=== PATIENT | male | born 1945 ===

== ENCOUNTER 2019-07-13 11:25 | Inpatient (IN) | payer OTHER ==
[2019-07-13 13:02] LABS: Basophils % (A) 0 %; Eosinophils # (A) 0.2 k/uL (0-0.7); Eosinophils % (A) 4 %; HCT 44.8 % (39.0-53.0); HGB 15.3 gm/dL (13.0-17.5); Lymphocytes # (A) 1.3 k/uL (1.0-4.8); Lymphocytes % (A) 23 %; MCH 34.4 pg (25.0-35.0); MCHC 34.1 g/dL (31.0-37.0); Mean Platelet Volume 6.7; Monocytes # (A) 0.4 k/uL (0-1.0); Monocytes % (A) 6 %; Neutrophils # (A) 3.7 k/uL (1.3-7.7); Neutrophils % (A) 64 %; Platelet Count 206 k/uL (150-450); RBC 4.43 m/uL (4.30-5.90); RDW 12.5 % (11.5-15.5); WBC 5.8 k/uL (3.8-10.6)
[2019-07-13 13:21] LABS: Albumin 3.9 g/dL (3.5-5.0); Calcium 9.1 mg/dL (8.4-10.2); Total Bilirubin 1.4 mg/dL (0.2-1.3); Total Protein 6.9 g/dL (6.3-8.2)
[2019-07-13 13:27] LABS: Potassium 4.4 mmol/L (3.5-5.1)
--- NOTE | 2019-07-13 13:45 | ED ---
Skin/Abscess/FB HPI - General Chief complaint: Skin/Abscess/Foreign Body Stated complaint: Infection Time Seen by Provider: 07/13/19 12:09 Source: patient Mode of arrival: ambulatory - History of Present Illness Initial comments: 73-year-old male who denies past medical history presenting today for chief complaint of diagnosis, cell carcinoma and evaluation in the emergency depa rtment. Patient states he had a biopsy of a mass on the right side of his neck just been developing over the past few months. Patient was told it was, cell carcinoma. Patient was told he needed to go to [facility] emergency department for further evaluation. Patient feels like the masses pushing internally. He states his pain in his ear and his throat. Patient denies any difficulty breathing swallowing. Patient denies any fever or chills. Symptoms patient denies any other complaints denies any headache dizziness chest pain shortness of breath and leg swelling. Upon arrival patient appears well signs of acute distress she is very pleasant - Related Data Home Medications Medication Instructions Recorded Confirmed Lisinopril [Zestril] 10 mg PO DAILY 07/13/19 07/13/19 Metoprolol Succinate [Toprol XL] 25 mg PO HS 07/13/19 07/13/19 Allergies Allergy/AdvReac Type Severity Reaction Status Date / Time No Known Allergies Allergy Verified 07/13/19 16:01 Review of Systems ROS Statement: Those systems with pertinent positive or pertinent negative responses have been documented in the HPI. ROS Other: All systems not noted in ROS Statement are negative. Past Medical History Past Medical History: No Reported History History of Any Multi-Drug Resistant Organisms: None Reported Past Surgical History: Cholecystectomy Smoking Status: Never smoker Past Alcohol Use History: None Reported, Occasional Past Drug Use History: None Reported General Exam - General Exam Comments Initial Comments: General: The patient is awake and alert, in no distress, and does not appear acutely ill. Eye: +3 mm pupils are equal, round and reactive to light, extra-ocular movements are intact. No nystagmus. There is normal conjunctiva bilaterally. No signs of icterus. Ears, nose, mouth and throat: There are moist mucous membranes and no oral lesions. Neck: There is large right sided fungating mass roughly 5x4 cm, soft tissue swelling with tenderness to palptionn surround center of mass. Cardiovascular: There is a regular rate and rhythm. No murmur, rub or gallop is appreciated. Respiratory: Lungs are clear to auscultation, respirations are non-labored, breath sounds are equal. No wheezes, stridor, rales, or rhonchi. Gastrointestinal: Soft, non-distended, non-tender abdomen without masses or organomegaly noted. There is no rebound or guarding present. Musculoskeletal: Normal ROM, no tenderness. Strength 5/5. Sensation intact. Radial pulses equal bilaterally 2+. Neurological: A&O x 3. CN II-XII intact grossly, There are no obvious motor or sensory deficits. Coordination appears grossly intact. Speech is normal. Skin: Skin is warm and dry and no rashes or lesions are noted. No LE edema. Psychiatric: Cooperative, appropriate mood & affect, normal judgment. Course Vital Signs 07/13/19 07/13/19 07/13/19 11:49 13:28 15:03 Temperature 97.9 F 98.2 F Pulse Rate 61 58 L Respiratory 18 16 16 Rate Blood Pressure 137/59 134/70 O2 Sat by Pulse 94 L 97 Oximetry 07/13/19 16:10 Temperature 98.1 F Pulse Rate 67 Respiratory 16 Rate Blood Pressure 137/89 O2 Sat by Pulse 98 Oximetry Medical Decision Making - Medical Decision Making 73-year-old male presenting today for chief complaint of newly diagnosed cancer. Patient is fungating mass diagnosis squamous cell carcinoma after biopsy. Patient otherwise appears well no other complaints CT obtained to ensure no airway compression. There is evidence of invasion into the parotid gland as well as local metastasis and metastasis to adjacent lymph nodes. Patient will be admitted for oncology consultation. Dr Lutz accepted admission. Case discussed wtih Dr Marion. - Lab Data Result diagrams: 07/13/19 12:35 07/13/19 12:35 Lab Results 07/13/19 07/13/19 Range/Units 12:35 12:35 WBC 5.8 (3.8-10.6) k/uL RBC 4.43 (4.30-5.90) m/uL Hgb 15.3 (13.0-17.5) gm/dL Hct 44.8 (39.0-53.0) % MCV 101.0 H (80.0-100.0) fL MCH 34.4 (25.0-35.0) pg MCHC 34.1 (31.0-37.0) g/dL RDW 12.5 (11.5-15.5) % Plt Count 206 (150-450) k/uL Neutrophils % 64 % Lymphocytes % 23 % Monocytes % 6 % Eosinophils % 4 % Basophils % 0 % Neutrophils # 3.7 (1.3-7.7) k/uL Lymphocytes # 1.3 (1.0-4.8) k/uL Monocytes # 0.4 (0-1.0) k/uL Eosinophils # 0.2 (0-0.7) k/uL Basophils # 0.0 (0-0.2) k/uL Sodium 140 (137-145) mmol/L Potassium 4.4 (3.5-5.1) mmol/L Chloride 107 (98-107) mmol/L Carbon Dioxide 24 (22-30) mmol/L Anion Gap 9 mmol/L BUN 20 (9-20) mg/dL Creatinine 0.96 (0.66-1.25) mg/dL Est GFR (CKD-EPI)AfAm 90 (>60 ml/min/1.73 sqM) Est GFR (CKD-EPI)NonAf 78 (>60 ml/min/1.73 sqM) Glucose 100 H (74-99) mg/dL Calcium 9.1 (8.4-10.2) mg/dL Total Bilirubin 1.4 H (0.2-1.3) mg/dL AST 26 (17-59) U/L ALT 17 (4-49) U/L Alkaline Phosphatase 46 (38-126) U/L Total Protein 6.9 (6.3-8.2) g/dL Albumin 3.9 (3.5-5.0) g/dL Disposition Clinical Impression: Squamous cell carcinoma, Squamous cell carcinoma, metastatic Disposition: ADMITTED IP TO THIS [facility] Condition: Stable Is patient prescribed a controlled substance at d/c from ED?: No Time of Disposition: 15:44 Decision to Admit Reason: Admit from EC Decision Date: 07/13/19 Decision Time: 15:44
--- NOTE | 2019-07-13 14:15 | CT ---
EXAMINATION TYPE: CT soft tissue neck w con DATE OF EXAM: 07/13/2019 COMPARISON: None HISTORY: FACIAL MASS, SQUAMOUS CELL CONTRAST: CT scan of the neck is performed with IV Contrast, patient injected with 100 mL of Isovue 300. Contrast enhanced CT of the neck was performed from the skull base through the lung apices. There is a cutaneous lesion noted caudal to the right earlobe which measures 3.2 x 2.0 x 2.5 cm. The lesion directly abuts the parotid gland and may in fact invade this structure. 2 additional nodules a re seen within the right parotid gland measuring 2.0 cm in greatest dimension and 2.0 cm respectively . No left parotid lesions are identified at this time. AIRWAY: The supraglottic, glottic, and subglottic portions of the airway appear patent and free of mass. SALIVARY GLANDS: The submandibular is free of mass or inflammatory process. THYROID GLAND: No nodules or masses seen. LYMPH NODES: No adenopathy seen greater than 1cm. LUNG APICES: No nodule or mass is seen. OTHER: Vascular structures are patent. No significant degenerative change of the cervical spine. N o abscess seen. IMPRESSION: 1. Cutaneous lesion directly abuts the superficial lobe of the parotid gland and may in fact invade t he parotid gland. There is an adjacent 2 cm solid nodule within the parotid gland. Within the superio r portion of the parotid gland there is an additional 2 cm lesion. These may reflect metastatic lesio ns or intraparotid lymph nodes.
[2019-07-13] MEDS ORDERED: ONDANSETRON 4 MG/2 ML VIAL IVP PRN (15:42)
[2019-07-13] MEDS ORDERED: MORPHINE SULFATE 4 MG/ML SYRINGE IV PRN (15:42)
[2019-07-13] MEDS ORDERED: NALOXONE 0.4 MG/ML 1 ML VIAL IV PRN (15:42)
[2019-07-13] MEDS: SODIUM CHLORIDE 0.9% 1,000 ML IV SCH (16:58)
--- NOTE | 2019-07-14 12:05 | P.HPIM ---
History of Present Illness This is a pleasant 73 male, originally is from [place] and his been evaluated at 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 He was recently diagnosed with squamous cell cancer of a mass in his right upper neck area below his right knee at [facility]. And he has a diagnosed with squamous cell cancer as per patient. Patient is having difficulty with providing information although he speaks Ukrainian but not fluent typically, information were obtained also by the help of his friend at bedside Mr. taylor , after patient otherwise the medical team to talk to him. His friend already knows about his diagnosis. Patient and his friend states he came to the hospital because he has increasing pain about 7/10 in that area, however he has no difficulty eating or token. Patient had CAT scan of the soft tissue of the neck done in the emergency room showing cutaneous lesion inferior to the right ear lobe 3.2 x 2.0 x 2.5 cm with 2 additional nodules in the right parotid gland vision 2 cm suspicious for lymph node versus metastasis. Patient also follow up with his PCP Dr. robert panchal [phone], and the last time he saw him about 2 months ago Review of Systems CONSTITUTIONAL: No fever, no malaise, no fatigue. HEENT: No recent visual problems or hearing problems. Denied any sore throat. CARDIOVASCULAR: No orthopnea, PND, no palpitations, no syncope. PULMONARY: No shortness of breath, no cough, no hemoptysis. GASTROINTESTINAL: No diarrhea, no nausea, no vomiting, no abdominal pain. Normoactive bowel sounds. NEUROLOGICAL: No headaches, no weakness, no numbness. HEMATOLOGICAL: Denies any bleeding or petechiae. GENITOURINARY: Denies any burning micturition, frequency, or urgency. MUSCULOSKELETAL/RHEUMATOLOGICAL: Denies any joint pain, swelling, or any muscle pain. ENDOCRINE: Denies any polyuria or polydipsia. Past Medical History Past Medical History: No Reported History History of Any Multi-Drug Resistant Organisms: None Reported Past Surgical History: Cholecystectomy Additional Past Surgical History / Comment(s): surgery to remove skin cancer to right neck x 2 Past Anesthesia/Blood Transfusion Reactions: Unable to Obtain Smoking Status: Never smoker Past Alcohol Use History: None Reported, Occasional Past Drug Use History: None Reported - Past Family History Mother Family Medical History: Diabetes Mellitus Medications and Allergies Home Medications Medication Instructions Recorded Confirmed Type Lisinopril [Zestril] 10 mg PO DAILY 07/13/19 07/13/19 History Metoprolol Succinate [Toprol XL] 25 mg PO HS 07/13/19 07/13/19 History Allergies Allergy/AdvReac Type Severity Reaction Status Date / Time No Known Allergies Allergy Verified 07/13/19 16:01 Physical Exam Vitals: Vital Signs Temp Pulse Pulse Pulse Resp BP BP 07/14/19 05:00 98.1 F 60 18 107/64 07/13/19 21:00 97.4 F L 62 16 118/62 07/13/19 17:13 98 F 63 20 151/93 07/13/19 16:10 98.1 F 67 16 137/89 07/13/19 15:03 98.2 F 58 L 16 134/70 07/13/19 13:28 16 Pulse Ox 07/14/19 05:00 96 07/13/19 21:00 96 07/13/19 17:13 99 07/13/19 16:10 98 07/13/19 15:03 97 07/13/19 13:28 Intake and Output 07/13/19 07/14/19 07/14/19 22:59 06:59 14:59 Intake Total 590 240 Balance 590 240 Intake: Intake, IV Titration 240 Amount Sodium Chloride 0.9% 1, 240 000 ml @ 20 mls/hr IV . [facility]H [facility] Rx#:[id number] Oral 590 Other: Voiding Method Toilet Toilet # Voids 2 Weight 69.944 kg GENERAL: The patient is alert and oriented x3, not in any acute distress. Well developed, well nourished. -HEENT: Pupils are round and equally reacting to light. EOMI. No scleral icterus. No conjunctival pallor. Normocephalic, atraumatic. No pharyngeal erythema. No thyromegaly. Cutaneous mass, dark color about 2 x 3 cm below the right earlobe. CARDIOVASCULAR: S1 and S2 present. No murmurs, rubs, or gallops. PULMONARY: Chest is clear to auscultation, no wheezing or crackles. ABDOMEN: Soft, nontender, nondistended, normoactive bowel sounds. No palpable organomegaly. MUSCULOSKELETAL: No joint swelling or deformity. EXTREMITIES: No cyanosis, clubbing, or pedal edema. NEUROLOGICAL: Gross neurological examination did not reveal any focal deficits. SKIN: No rashes. No petechiae Results CBC & Chem 7: 07/13/19 12:35 07/13/19 12:35 Labs: Abnormal Lab Results - Last 24 Hours (Table) 07/13/19 07/13/19 Range/Units 12:35 12:35 MCV 101.0 H (80.0-100.0) fL Glucose 100 H (74-99) mg/dL Total Bilirubin 1.4 H (0.2-1.3) mg/dL Thrombosis Risk Factor Assmnt - Choose All That Apply Any of the Below Risk Factors Present?: Yes Other Risk Factors: Yes Each Risk Factor Represents 2 Points: Malignancy Each Risk Factor Represents 3 Points: Age 75 years or older Other congenital or acquired thrombophilia - If yes, enter type in comment: No Thrombosis Risk Factor Assessment Total Risk Factor Score: 5 Thrombosis Risk Factor Assessment Level: High Risk Assessment and Plan Assessment: -Right infra-auricular cutaneous mass 3.2 x 2.0 x 2.5 cm with 2 additional nodules in the right parotid gland vision 2 cm suspicious for lymph node versus metastasis. Patient has diagnosis of squamous cell cancer Plan: This is a pleasant 73 years old male who presents with painful right infra- auricular mass with possible metastasis to the parotid gland on the right side. We'll consult oncology team. Pain management Labs and medication were reviewed.. Continue same treatment. Continue with symptomatic treatment. Resume home medication. Monitor lytes and vitals. DVT and GI prophylaxis. Further recommendations of the clinical course of the patient DVT prophylaxis: Subcutaneous heparin GI Prophylaxis:no need Prognosis is guarded
[2019-07-14] MEDS: SODIUM CHLORIDE 0.9% 1,000 ML IV SCH (16:01)
[2019-07-14] MEDS: HEPARIN SODIUM,PORCINE 5,000 UNIT/ML 1 ML VIAL SQ SCH (20:16)
[2019-07-14] MEDS: ACETAMINOPHEN TAB 325 MG TAB PO PRN (20:17)
--- NOTE | 2019-07-14 23:18 | P.CONS ---
History of Present Illness - Reason for Consult Consult date: 07/14/19 Neck squamous cell carcinoma Requesting physician: Torres E Sheet - Chief Complaint Pain - History of Present Illness Mr. Costa is a very pleasant 73-year-old gentleman who is new to the system who is here for neck pain. he says he noticed the lesion in the right ear region about 3 months ago. Denies having any skin before then. He does not have insurance which is causing some delay in his treatment. He was seen by a top edge beveler, Dr. Manjarrez, and the lesion was resected. unfortunately it recurred, growing quickly. Plan was to proceed with a Mohs surgery. Unclear if this occurred however it seems that he was unable to do this due to lack of insurance. He ended up here for pain control. He denies having staging body CT. He has not had any cancer screening in the past. Denies any smoking or alcohol use. No known family history of malignancy. He was told the pathology was positive for squamous cell carcinoma. CT of the neck here shows a cutaneous lesion in the right ear lobe which measures 3.2 x 2 x 2.5 cm abutting the parotid gland and possibly invading the parotid gland. There were also 2 additional nodules within the right parotid gland measuring up to 2 cm otherwise negative. He was admitted for pain control and further workup and evaluation. CBC normal with WBC 5.8, Hgb 15.3, plt 206. CMP normal except for total bilirubin of 1.4. He speaks limited Yakut. bundle person is Mr. Finn, phone number is [phone]. Review of Systems All systems: negative Constitutional: Reports as per HPI Past Medical History Past Medical History: No Reported History History of Any Multi-Drug Resistant Organisms: None Reported Past Surgical History: Cholecystectomy Additional Past Surgical History / Comment(s): surgery to remove skin cancer to right neck x 2 Past Anesthesia/Blood Transfusion Reactions: Unable to Obtain Smoking Status: Never smoker Past Alcohol Use History: None Reported, Occasional Past Drug Use History: None Reported - Past Family History Mother Family Medical History: Diabetes Mellitus Medications and Allergies Home Medications Medication Instructions Recorded Confirmed Type Lisinopril [Zestril] 10 mg PO DAILY 07/13/19 07/13/19 History Metoprolol Succinate [Toprol XL] 25 mg PO HS 07/13/19 07/13/19 History Allergies Allergy/AdvReac Type Severity Reaction Status Date / Time No Known Allergies Allergy Verified 07/13/19 16:01 Physical Exam Vitals: Vital Signs Temp Pulse Pulse Resp BP Pulse Ox 07/14/19 12:14 97.5 F L 65 17 141/67 95 07/14/19 05:00 98.1 F 60 18 107/64 96 07/13/19 21:00 97.4 F L 62 16 118/62 96 Intake and Output 07/14/19 07/14/19 07/14/19 06:59 14:59 22:59 Intake Total 240 160 Balance 240 160 Intake: Intake, IV Titration 240 160 Amount Sodium Chloride 0.9% 1, 240 160 000 ml @ 20 mls/hr IV . Q24H [facility] Rx#:[id number] Other: Voiding Method Toilet Toilet Gen.: In no acute distress. HEENT: EOMI. No conjunctival pallor or scleral icterus. Mucosa moist. Large, ~2-3cm right earlobe fungating mass. Neck: Neck supple. Lymph: No supra clavicular or cervical lymphadenopathy. Lungs: CTAB without wheezing or rhonchi. Heart: RRR. No lower extremity edema. Abdomen: Soft, nontender, nondistended, with positive bowel sounds. MSK: 4/4 strength in all 4 extremities. Neuro: Alert and oriented 3. No obvious gross neurologic deficits. Skin: No jaundice or rash. Psych: Appropriate affect. Results CBC & Chem 7: 07/13/19 12:35 07/13/19 12:35 Comments: CT neck with 2.5 cm right earlobe mass possibly invading parotid gland and 2 intraparotid nodules. Assessment and Plan Assessment: 1. Right earlobe cutaneous squamous cell carcinoma 2. Parotid gland nodules Plan: Mr. Costa is a very pleasant 73-year-old gentleman who is here for increased pain in his right ear lobe mass which was recently diagnosed at an outside hospital and found to be a squamous cell carcinoma. CT of the neck shows a large 3.2 cm right earlobe cutaneous mass with possible invasion into the parotid into intraparotid nodules. We need to obtain records of his biopsy results. He denies any staging work up and not being seen by PCP or had any other cancer screening work up done in the past. Will obtain CT CAP. Pain control. regulatory compliance manager to speak with pt regarding his insurance status. Discussed with pt in detail and he is agreeable. All questions answered.
--- NOTE | 2019-07-15 07:15 | P.PN ---
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 He was recently diagnosed with squamous cell cancer of a mass in his right upper neck area below his right knee at [facility]. And he has a diagnosed with squamous cell cancer as per patient. Patient is having difficulty with providing information although he speaks Setswana but not fluent typically, information were obtained also by the help of his friend at bedside Mr. taylor , after patient otherwise the medical team to talk to him. His friend already knows about his diagnosis. Patient and his friend states he came to the hospital because he has increasing pain about 7/10 in that area, however he has no difficulty eating or token. Patient had CAT scan of the soft tissue of the neck done in the emergency room showing cutaneous lesion infe rior to the right ear lobe 3.2 x 2.0 x 2.5 cm with 2 additional nodules in the right parotid gland vision 2 cm suspicious for lymph node versus metastasis. Patient also follow up with his PCP Dr. robert panchal [phone], and the last time he saw him about 2 months ago 07/15/2019 Patient presents with a mass on his right upper neck, recently diagnosed with a cancer as per patient with possible metastases and to the underlying parotid gland. Patient has been evaluated by oncology team, with need workup for staging. Also he needs to be seen by social service assistant for insurance coverage. Patient with known new complaints today. Objective - Vital Signs Vital signs: Vital Signs Temp 97.7 F 07/15/19 05:00 Pulse 65 07/15/19 05:00 Resp 18 07/15/19 05:00 BP 116/67 07/15/19 05:00 Pulse Ox 98 07/15/19 05:00 Intake & Output 07/14/19 07/15/19 07/15/19 18:59 06:59 18:59 Intake Total 160 Balance 160 Intake: Intake, IV Titration 160 Amount Sodium Chloride 0.9% 1, 160 000 ml @ 20 mls/hr IV . Q24H [facility] Rx#:[id number] Other: Voiding Method Toilet Toilet # Voids 1 - Exam GENERAL: The patient is alert and oriented x3, not in any acute distress. Well developed, well nourished. -HEENT: Pupils are round and equally reacting to light. EOMI. No scleral icterus. No conjunctival pallor. Normocephalic, atraumatic. No pharyngeal erythema. No thyromegaly. Cutaneous mass, dark color about 2 x 3 cm below the right earlobe. CARDIOVASCULAR: S1 and S2 present. No murmurs, rubs, or gallops. PULMONARY: Chest is clear to auscultation, no wheezing or crackles. ABDOMEN: Soft, nontender, nondistended, normoactive bowel sounds. No palpable organomegaly. MUSCULOSKELETAL: No joint swelling or deformity. EXTREMITIES: No cyanosis, clubbing, or pedal edema. NEUROLOGICAL: Gross neurological examination did not reveal any focal deficits. SKIN: No rashes. No petechiae - Labs CBC & Chem 7: 07/13/19 12:35 07/13/19 12:35 Assessment and Plan Assessment: -Right infra-auricular cutaneous mass 3.2 x 2.0 x 2.5 cm with 2 additional nodules in the right parotid gland vision 2 cm suspicious for lymph node versus metastasis. Patient has diagnosis of squamous cell cancer Plan: This is a pleasant 73 years old male who presents with painful right infra- auricular mass with possible metastasis to the parotid gland on the right side. Follow-up with oncology team recommendation, obtain records for squamous cell cancer biopsy results. He might need workup for staging. general house worker consult for insurance coverage. Pain management Labs and medication were reviewed.. Continue same treatment. Continue with symptomatic treatment. Resume home medication. Monitor lytes and vitals. DVT and GI prophylaxis. Further recommendations of the clinical course of the patient DVT prophylaxis: Subcutaneous heparin GI Prophylaxis:no need Prognosis is guarded
[2019-07-15] MEDS: HEPARIN SODIUM,PORCINE 5,000 UNIT/ML 1 ML VIAL SQ SCH ×2 (08:28→20:20)
[2019-07-15] MEDS: IOPAMIDOL CONTRAST (ORAL USE) VIAL PO PRN ×2 (08:28→09:39)
[2019-07-15 08:40] LABS: ALT 16 U/L (4-49); AST 26 U/L (17-59); African American GFR (CKD) >90 (>60 ml/min/1.73 sqM); Alkaline Phosphatase 45 U/L (38-126); Anion Gap 8 mmol/L; Blood Urea Nitrogen 18 mg/dL (9-20); Calcium 9.1 mg/dL (8.4-10.2); Carbon Dioxide 25 mmol/L (22-30); Chloride 106 mmol/L (98-107); Glucose 109 mg/dL (74-99); Non-African American GFR(CKD) 80 (>60 ml/min/1.73 sqM); Potassium 4.2 mmol/L (3.5-5.1); Sodium 139 mmol/L (137-145); Total Bilirubin 1.5 mg/dL (0.2-1.3); Total Protein 7.2 g/dL (6.3-8.2)
--- NOTE | 2019-07-15 10:41 | CT ---
EXAMINATION TYPE: CT ChestAbdPelvis wo/w con DATE OF EXAM: 07/15/2019 COMPARISON: HISTORY: New found squamous cell cancer-neck CT DLP: 2189 mGycm Automated exposure control for dose reduction was used. CONTRAST: CT scan of the chest, abdomen and pelvis is performed with Oral Contrast and without and with IV Cont rast, patient injected with 100 mL of Isovue 300. FINDINGS: LUNGS: The lungs are grossly clear, there is no concerning parenchymal mass or nodule identified. T here is no pleural effusion or pneumothorax seen. The tracheobronchial tree is patent. Mild emphysem atous changes noted. MEDIASTINUM: There are no greater than 1 cm hilar or mediastinal lymph nodes. No pericardial effusi on is seen. The heart is enlarged there is a trace amount pericardial fluid. There is a small hiatal hernia. Dense coronary artery calcification. Mild atherosclerotic changes aorta. OTHER: Nonspecific calcification seen adjacent to the diaphragm liver. LIVER/GB: Gallbladder is not visualized correlate for previous cholecystectomy. Liver slightly dimini shed in attenuation likely in the basis of hepatic steatosis. PANCREAS: No significant abnormality is seen. SPLEEN: No significant abnormality is seen. ADRENALS: No significant abnormality is seen. KIDNEYS: No significant abnormality is seen. BOWEL: Bowel gas pattern nonspecific with no obstruction. Changes of diverticulosis.. LYMPH NODES: No greater than 1 cm abdominal or pelvic lymph nodes are appreciated. OSSEOUS STRUCTURES: Multilevel hypertrophic and degenerative changes noted. OTHER: Aorta of normal caliber. Nonspecific calcifications are seen throughout the peritoneum and mes entery of the abdominal cavity. Additional soft tissue calcifications are seen subcutaneous tissues a djacent to the gluteal region compatible soft tissue granuloma. Fat-containing bilateral inguinal her nias are noted in the prostate gland appears to be enlarged correlate with PSA. IMPRESSION: 1. Prostate enlargement correlate with PSA. 2. No diagnostic evidence of metastases.
[2019-07-15] MEDS: SODIUM CHLORIDE 0.9% 1,000 ML IV SCH (17:09)
[2019-07-15] MEDS: ACETAMINOPHEN TAB 325 MG TAB PO PRN (20:26)
[2019-07-16] MEDS: HEPARIN SODIUM,PORCINE 5,000 UNIT/ML 1 ML VIAL SQ SCH ×2 (08:06→20:43)
--- NOTE | 2019-07-16 08:20 | P.PN ---
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 And he has a diagnosed with squamous cell cancer as per patient. Patient is having difficulty with providing information although he speaks Setswana but not fluent typically, information were obtained also by the help of his friend at bedside Mr. taylor , after patient otherwise the medical team to talk to him. His friend already knows about his diagnosis. Patient and his friend states he came to the hospital because he has increasing pain about 7/10 in that area, however he has no difficulty eating or token. Patient had CAT scan of the soft tissue of the neck done in the emergency room showing cutaneous lesion infe rior to the right ear lobe 3.2 x 2.0 x 2.5 cm with 2 additional nodules in the right parotid gland vision 2 cm suspicious for lymph node versus metastasis. Patient also follow up with his PCP Dr. robert panchal [phone], and the last time he saw him about 2 months ago 07/15/2019 Patient presents with a mass on his right upper neck, recently diagnosed with a cancer as per patient with possible metastases and to the underlying parotid gland. Patient has been evaluated by oncology team, with need workup for staging. Also he needs to be seen by social services manager for insurance coverage. Patient with known new complaints today. 07/16/2019 Patient with right upper neck mass which looks his stable, possible metastases to the right parotid gland, no chest pain or abdominal pain. His records from the other facility for his mass biopsy are still need to be obtained. 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 CAT scan of the chest, abdomen and pelvis done yesterday are reviewed. Vitals stable. Oncology team are following Objective - Vital Signs Vital signs: Vital Signs Temp 98.4 F 07/16/19 04:35 Pulse 64 07/16/19 04:35 Resp 16 07/16/19 04:35 BP 123/63 07/16/19 04:35 Pulse Ox 98 07/16/19 04:35 Intake & Output 07/15/19 07/16/19 07/16/19 18:59 06:59 18:59 Intake Total 160 Balance 160 Intake: Intake, IV Titration 160 Amount Sodium Chloride 0.9% 1, 160 000 ml @ 20 mls/hr IV . Q24H [facility] Rx#:[id number] Other: Voiding Method Toilet Toilet # Voids 1 - Exam GENERAL: The patient is alert and oriented x3, not in any acute distress. Well developed, well nourished. -HEENT: Pupils are round and equally reacting to light. EOMI. No scleral icterus. No conjunctival pallor. Normocephalic, atraumatic. No pharyngeal erythema. No thyromegaly. Cutaneous mass, dark color about 2 x 3 cm below the right earlobe. CARDIOVASCULAR: S1 and S2 present. No murmurs, rubs, or gallops. PULMONARY: Chest is clear to auscultation, no wheezing or crackles. ABDOMEN: Soft, nontender, nondistended, normoactive bowel sounds. No palpable organomegaly. MUSCULOSKELETAL: No joint swelling or deformity. EXTREMITIES: No cyanosis, clubbing, or pedal edema. NEUROLOGICAL: Gross neurological examination did not reveal any focal deficits. SKIN: No rashes. No petechiae - Labs CBC & Chem 7: 07/13/19 12:35 07/15/19 07:54 Labs: Abnormal Lab Results - Last 24 Hours (Table) 07/15/19 Range/Units 07:54 Glucose 109 H (74-99) mg/dL Total Bilirubin 1.5 H (0.2-1.3) mg/dL Assessment and Plan Assessment: -Right infra-auricular cutaneous mass 3.2 x 2.0 x 2.5 cm with 2 additional nodules in the right parotid gland vision 2 cm suspicious for lymph node versus metastasis. Patient has diagnosis of squamous cell cancer Plan: This is a pleasant 73 years old male who presents with painful right infra- auricular mass with possible metastasis to the parotid gland on the right side. Follow-up with oncology team recommendation, obtain records for squamous cell cancer biopsy results. As per oncology team continue with workup for staging. 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 Pain management Labs and medication were reviewed.. Continue same treatment. Continue with symptomatic treatment. Resume home medication. Monitor lytes and vitals. DVT and GI prophylaxis. Further recommendations of the clinical course of the patient DVT prophylaxis: Subcutaneous heparin GI Prophylaxis:no need Prognosis is guarded
[2019-07-16] MEDS: SODIUM CHLORIDE 0.9% 1,000 ML IV SCH (17:56)
[2019-07-17] MEDS: HEPARIN SODIUM,PORCINE 5,000 UNIT/ML 1 ML VIAL SQ SCH (06:51)
--- NOTE | 2019-07-17 09:31 | P.CONS ---
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 He presents secondary to difficulty with increased pain. The patient unfortunately speaks limited Icelandic. From our conversation, I was able to ascertain that the patient had at least a biopsy of this growing right neck mass within the last several weeks by Dr. Manjarrez. He was then told to be evaluated at [facility]. The patient presented to the hospital [facility] as he was having increased pain in the lesion, and he was aware of the attached [facility] satellite office. The patient reports that the mass has been growing quickly over the past 2 months. It does cause him pain when he presses on it, which radiates to the ear and neck. He underwent a CT scan of the neck on July 13 on the day of his admission, which revealed a 3 x 2 cm lesion caudal to the right earlobe which was subcutaneous. This was felt to abut the parotid gland, with 2 additional 2 cm lesions noted within the parotid gland. The patient underwent a CT scan of the chest, abdomen and pelvis the same day to evaluate for metastatic disease. There was no evidence of metastasis; note was made of an enlarged prostate gland. The patient reports that he currently does not have insurance, but he initiated the application. The patient is undergoing social work evaluation at the hospital. Review of Systems Constitutional: Denies chills, Denies fever, Denies weight loss Eyes: denies blurred vision Ears: right: earache Ears, nose, mouth and throat: Reports neck lump, Denies dental pain, Denies dysphagia, Denies headache, Denies odynophagia, Denies sore throat Cardiovascular: Denies chest pain Respiratory: Denies congestion Gastrointestinal: Denies abdominal pain Genitourinary: Denies flank pain Musculoskeletal: Denies arm numbness/tingling, Denies leg numbness/tingling Integumentary: Denies rash Neurological: Denies aphasia, Denies confusion Psychiatric: Denies anxiety, Denies confusion, Denies depression Past Medical History Past Medical History: No Reported History History of Any Multi-Drug Resistant Organisms: None Reported Past Surgical History: Cholecystectomy Additional Past Surgical History / Comment(s): surgery to remove skin cancer to right neck x 2 Past Anesthesia/Blood Transfusion Reactions: Unable to Obtain Smoking Status: Never smoker Past Alcohol Use History: None Reported, Occasional Past Drug Use History: None Reported - Past Family History Mother Family Medical History: Diabetes Mellitus Medications and Allergies Home Medications Medication Instructions Recorded Confirmed Type Lisinopril [Zestril] 10 mg PO DAILY 07/13/19 07/13/19 History Metoprolol Succinate [Toprol XL] 25 mg PO HS 07/13/19 07/13/19 History Allergies Allergy/AdvReac Type Severity Reaction Status Date / Time No Known Allergies Allergy Verified 07/13/19 16:01 Physical Exam Vitals: Vital Signs Temp Pulse Resp BP Pulse Ox 07/17/19 04:35 98.0 F 63 16 115/69 96 07/16/19 20:37 97.8 F 67 16 132/73 95 07/16/19 11:53 97.4 F L 66 16 125/75 96 Intake and Output 07/16/19 07/17/19 07/17/19 22:59 06:59 14:59 Other: Voiding Method Toilet # Voids 1 1 - Constitutional General appearance: average body habitus, no acute distress - EENT Eyes: EOMI, PERRLA ENT: normal oropharynx, no pharyngeal erythema, no thrush, no tonsillar exudates - Neck Neck: lymphadenopathy (firm, fixed adenopathy within the parotid gland immediate pre-auricular region. No adenopathy in neck. Large 4 cm exophytic, rounded mass subcutaneous 1 cm below the ear noted. Firm, non-fluctuant.) - Respiratory Respiratory: bilateral: CTA - Cardiovascular Rhythm: regular - Gastrointestinal General gastrointestinal: no tenderness - Integumentary Integumentary: no cellulitis, no cyanotic - Neurologic Neurologic: CNII-XII intact - Musculoskeletal Musculoskeletal: gait normal, strength equal bilaterally - Psychiatric Psychiatric: A&O x's 3, appropriate affect, intact judgment & insight Results CBC & Chem 7: 07/13/19 12:35 07/15/19 07:54 CT scan - abdomen: report reviewed, image reviewed CT scan - chest: report reviewed, image reviewed CT Scan - head: report reviewed, image reviewed CT scan - pelvis: report reviewed, image reviewed Assessment and Plan Plan: The patient is a 73-year-old male with a history of a recently diagnosed clinical stage IV (cT3, cN2b, 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 1. Squamous cell skin neoplasm: As detailed above, the patient presents with a large exophytic skin cancer. He has firm adenopathy within the parotid which is highly suspicious for regional disease. He has no evidence of distant disease on a CT of the C/A/P. I discussed with the patient that he would need evaluation by ENT oncology. If this is resectable, the ideal care would be to have up-front resection followed by adjuvant radiotherapy. We do not have ENT oncology on-call at our facility. I have arranged for the patient to have outpatient follow-up at [facility] with Dr. Dano Coles in ENT-oncology 07/19/19 at 1:30 PM. If the patient is not found to be resectable due to local disease extent, he will be recommended to undergo definitive radiotherapy and have evaluation with medical oncology. We will request his outside pathology report. 2. Social issues: Patient does not speak tristanian fluently. He does speak some tristanian, and his friend helps translate. He also been applying for medical insurance, which he did not have at the start of this. I will check with social work to see where they are at with his care. He is working with [employer] for medicaid. Of note, the patient lives in [place]. If more convenient, we can arrange for him to have adjuvant radiotherapy at our [place] site. Time with Patient: Greater than 30
[2019-07-17 11:53] VITALS: BP 149/79; PULSE 72; RESP 18; TEMP 97.5
--- NOTE | 2019-07-17 14:19 | P.DS ---
Providers Date of admission: 07/13/19 14:33 Attending physician: Torres Lutz MD Consults: 07/13/19 15:43 Consult Physician Routine Consulting Provider: Tu Rodriguez Consult Reason/Comments: fungating squamous cell mass Do you want consulting provider notified?: Yes 07/15/19 21:42 Consult Physician Routine Consulting Provider: Jose Nelson Consult Reason/Comments: locally advanced skin cancer Do you want consulting provider notified?: Yes, Notify in am Primary care physician: Robert Cain [facility] Course: Diagnoses: -Right infra-auricular cutaneous mass 3.2 x 2.0 x 2.5 cm with 2 additional nodules in the right parotid gland vision 2 cm suspicious for lymph node versus metastasis. 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 He was recently diagnosed with squamous cell cancer of a mass in his right upper neck area below his right ear at [facility]. And he has a diagnosed with squamous cell cancer as per patient. Patient is having difficulty with providing information although he speaks Dutch but not fluent typically, information were obtained also by the help of his friend at bedside Mr. finn , His friend already knows about his diagnosis. Patient and his friend states he came to the hospital because he has increasing pain about 7/10 in that area, however he has no difficulty eating or talking or breathing. Patient had CAT scan of the soft tissue of the neck done in the emergency room showing cutaneous lesion inferior to the right ear lobe 3.2 x 2.0 x 2.5 cm with 2 additional nodules in the right parotid gland measuring 2 cm suspicious for lymph node versus metastasis. Patient also follow up with his PCP Dr. robert cain [phone], and the last time he saw him about 2 months ago Oncology team evaluated the patient and recommended To scan of the chest, abdomen and pelvis with IV contrast which showed no metastasis found per radiologist's report. Radiology oncology team. The patient by obtaining an appointment for him at [facility] for further treatment as he likes medical insurance. Patient would be provided with the appointment date and time for close follow-up. Patient is going to see JUANY Davis, Rosa Sauceda [address] [place] [address] 07/19/2019 at 1:30 . Already an appointment made for him. Patient and his friend Mr. Finn's at bedside both of them told me and show me documents with the appointment time and date and address and they were aborted and stated they going to follow up this coming . Also they show me occurred provided for him by Dr. Jose Nelson with instruction to follow up with him in 1-2 weeks after going to [place] Dr. Coles appointment Patient explained to him in details and he verbalized understanding and acceptance and he said it back to me. Patient is cleared for discharge from radiation-oncology team Problems and management plan were discussed with the patient and he verbalized understanding and acceptance Patient was found stable and can be discharged home however he needs follow-up as an outpatient. Patient was instructed to follow up with PCP within one week and patient agrees Gen: patient is a AAOx3, no distress CVS: S1-S2, RRR, no murmur Lungs: B/L CTA, no wheezing Abdomen: soft, no distention, no tenderness, positive bowel sounds Extremity: no leg edema or induration Time spent more than 35 minutes Patient Condition at Discharge: Stable Plan - Discharge Summary Discharge Rx Participant: Yes New Discharge Prescriptions: No Action Metoprolol Succinate [Toprol XL] 25 mg PO HS Lisinopril [Zestril] 10 mg PO DAILY Discharge Medication List Lisinopril [Zestril] 10 mg PO DAILY 07/13/19 [History] Metoprolol Succinate [Toprol XL] 25 mg PO HS 07/13/19 [History] Follow up Appointment(s)/Referral(s): Robert Cain, [Primary Care Provider] - 1-2 days Activity/Diet/Wound Care/Special Instructions: JUANY Davis, Rosa Sauceda [address] [place] [address] 07/19/2019 at 1:30 .
== END 2019-07-17 14:50 | disposition home or self-care (01) | DRG 948 ==
LOC: EC 11:25 → 5NMEDONC 14:33
PROVIDERS: ADMIT Internal Medicine; ATTEND Internal Medicine
DX: G89.3 Neoplasm related pain (acute) (chronic) (principal); C79.89 Secondary malignant neoplasm of other specified sites; C44.222 Squamous cell carcinoma of skin of right ear and external auricular canal; Z79.899 Other long term (current) drug therapy; Z83.3 Family history of diabetes mellitus; Z90.49 Acquired absence of other specified parts of digestive tract; N40.0 Benign prostatic hyperplasia without lower urinary tract symptoms
CPT/HCPCS: 36415; 70491; 71270; 74178; 80053; 85025; 99284